=== PATIENT | female | born 1985 | race American Indian/Alaskan Native ===

== ENCOUNTER 2016-06-18 15:51 | Outpatient (CLI) | payer OTHER, MEDICAID ==
[2016-06-18] MEDS ORDERED: LACTATED RINGERS 500 ML IV ONE (17:00)
[2016-06-18] MEDS ORDERED: CELESTONE SOLUSPAN IM SCH (18:00)
== END 2016-06-18 16:45 | disposition home or self-care (01) ==
LOC: TRG 15:51
PROVIDERS: ATTEND Obstetrics & Gynecology
DX: O09.93 Supervision of high risk pregnancy, unspecified, third trimester (principal); Z3A.31 31 weeks gestation of pregnancy
CPT/HCPCS: 96372; J0702

== ENCOUNTER 2016-06-19 16:44 | Outpatient (CLI) | payer OTHER, MEDICAID ==
[2016-06-19] MEDS ORDERED: CELESTONE SOLUSPAN IM ONE (17:30)
== END 2016-06-19 17:09 | disposition home or self-care (01) ==
LOC: TRG 16:44
PROVIDERS: ATTEND Obstetrics & Gynecology
DX: O47.03 False labor before 37 completed weeks of gestation, third trimester (principal); Z3A.32 32 weeks gestation of pregnancy
CPT/HCPCS: 96372; J0702

== ENCOUNTER 2016-07-27 20:25 | Outpatient (CLI) | payer MEDICAID, OTHER ==
[2016-07-27 21:14] VITALS: BP 126/79
[2016-07-27] MEDS ORDERED: VISTARIL PO ONE (21:40)
== END 2016-07-27 21:48 | disposition home or self-care (01) ==
LOC: TRG 20:25
PROVIDERS: ATTEND Obstetrics & Gynecology
DX: O62.9 Abnormality of forces of labor, unspecified (principal); Z3A.37 37 weeks gestation of pregnancy

== ENCOUNTER 2016-08-01 06:53 | Inpatient (IN) | payer MEDICAID ==
--- NOTE | 2016-08-01 09:40 | Anesthesia Day of Surgery ---
Anesthesia Day of Surgery - Day of Surgery Patient Examined: Yes Patient H&P Reviewed: Yes Patient is NPO: Yes
--- NOTE | 2016-08-01 09:40 | Anesthesia Consultation ---
Anesthesia Consult and Med Hx Date of service: 08/01/16 - Airway Anesthetic Teeth Evaluation: Good ROM Head & Neck: Adequate Mental/Hyoid Distance: Adequate Mallampati Class: Class II Intubation Access Assessment: Probably Good - Pulmonary Exam CTA: Yes - Cardiac Exam Cardiac Exam: RRR - Pre-Operative Health Status ASA Pre-Surgery Classification: ASA2, Emergency Proposed Anesthetic Plan: Spinal - Pulmonary Hx Asthma: No COPD: No Hx Pneumonia: No - Cardiovascular System Hx Hypertension: Yes (en thyroid out of balance) Hx Angina: Yes (when thyroid acting up) - Central Nervous System Hx Seizures: No Hx Psychiatric Problems: No - Endocrine Hx Renal Disease: No Hx End Stage Renal Disease: No Hx Hypothyroidism: No Hx Hyperthyroidism: Yes - Hematic Hx Anemia: Yes Hx Sickle Cell Disease: No - Other Systems Hx Alcohol Use: No Hx Cancer: No
[2016-08-01 09:46] LABS: Basophils % (Auto) 0.4 % (0.0-1.8); Eosinophils % (Auto) 0.9 % (0.0-4.3); Hematocrit 36.1 % (30.3-42.9); Hemoglobin 11.6 gm/dl (10.1-14.3); Mean Corpuscular HGB Conc 32 % (30-34); Mean Corpuscular Volume 73 fl (79-97); Platelet Count 218 K/mm3 (140-440); Red Blood Count 4.98 M/mm3 (3.65-5.03); White Blood Count 10.9 K/mm3 (4.5-11.0)
[2016-08-01 09:56] LABS: Mean Corpuscular Hemoglobin 23 pg (28-32); Red Cell Distribution Width 22.2 % (13.2-15.2)
[2016-08-01] MEDS ORDERED: PEPCID IV ONE (10:00)
[2016-08-01] MEDS ORDERED: ANCEF/STERILE WATER 2 GM/20 ML 2 GM/20 ML SYRINGE IV NR (10:00)
[2016-08-01] MEDS ORDERED: BICITRA PO ONE (10:00)
[2016-08-01] MEDS ORDERED: LACTATED RINGERS 1,000 ML IV SCH (10:00)
[2016-08-01] MEDS ORDERED: PITOCin/NS 20 UNIT/1000ML DRIP 20 UNITS/1,000 ML BAG IV SCH ×2 (10:00→15:03)
[2016-08-01] MEDS ORDERED: REGLAN IV ONE (10:00)
--- NOTE | 2016-08-01 10:18 | History and Physical Report ---
History of Present Illness Date of examination: 08/01/16 Date of admission: 08/01/16 06:55 Chief complaint: leakage of fluid History of present illness: Pt is a 30 year old -Malaysian female JON 08/11/16 at 38w4d who presents complaining of leakage of fluid since about 6 am this morning- clear. She denies contractions or vaginal bleeding. She has had care at [facility] complicated by hyperthyroidism followed by endocrinology on methimazole 15 mg PO daily, Lupus anticoagulant with refusal of anticoagulation but taking a baby aspirin once daily, genital herpes, h/o PPROM with delivery, low-lying placenta that resolved, anemia, rubella non- immune status and IUGR followed by MFM with twice weekly visits. She is GBS positive. Past History Past Medical History: thyroid disease (hyperthyroidism ), other (Lupus Anticoagulant ) Past Surgical History: section (x2), other (eye surgery ) MACHINE [employer] History: herpes Family/Genetic History: hypertension, cancer Social history: no significant social history - Obstetrical History Expected Date of Delivery: 08/11/16 Actual Gestation: 38 Week(s) 4 Day(s) : 7 Para: 4 Hx # Term Pregnancies: 3 Number of Pregnancies: 1 Spontaneous Abortions: 1 Induced : 1 Number of Living Children: 4 Medications and Allergies Allergies Allergy/AdvReac Type Severity Reaction Status Date / Time hydrocodone bitartrate Allergy Shortness Verified 02/27/15 11:53 [From Vicodin] of Breath Home Medications Medication Instructions Recorded Confirmed Last Taken Type Propylthiouracil 100 mg PO TID #90 tab 01/23/16 08/01/16 Unknown Rx Ferrous Sulfate [Feosol] 325 mg PO BID 06/18/16 08/01/16 1 Day Ago History Methimazole 1 tab PO DAILY 06/18/16 08/01/16 1 Day Ago History Active Meds: Active Medications Cefazolin Sodium (Ancef/Sterile Water 2 Gm/20 Ml) 2 gm in 20 mls @ 80 mls/hr IV PREOP NR PRN Reason: Protocol Stop: 08/01/16 12:00 Lactated Ringer's (Lactated Ringers) 1,000 mls @ 2,250 mls/hr IV PREOP HANNAH Stop: 08/02/16 10:27 Oxytocin/Sodium Chloride (Pitocin/Ns 20 Unit/1000ml Drip) 20 units in 1,000 mls @ 0 mls/hr IV TITR HANNAH PRN Reason: As Directed Review of Systems All systems: negative - Vital Signs Vital signs: Vital Signs Pulse BP Pulse Ox 92 H 137/89 98 08/01/16 07:23 08/01/16 07:23 08/01/16 07:23 Temp Pulse Resp BP Pulse Ox 98.3 F 87 14 134/75 98 08/01/16 07:25 08/01/16 10:04 08/01/16 07:25 08/01/16 10:04 08/01/16 07:25 - Physical Exam Breasts: Positive: deferred Abdomen: Positive: soft (gravid ) Uterus: Positive: enlarged (gravid ) Extremities: Positive: normal - Obstetrical FHR: auscultation normal Uterine Contraction Monitor Mode: External Uterine Tone Measurement Phase: Resting Results Result Diagrams: 08/01/16 09:35 Abnormal lab results 08/01/16 Range/Units 09:35 MCV 73 L (79-97) fl MCH 23 L (28-32) pg RDW 22.2 H (13.2-15.2) % [place] % (Auto) 7.5 H (0.0-7.3) % Seg Neutrophils % 72.2 H (40.0-70.0) % Seg Neutrophils # 7.9 H (1.8-7.7) K/mm3 All other labs normal. Assessment and Plan A: IUP at 38w4d PROM Previous x 2 Undesired Fertility Hyperthyroidism Lupus Anticoagulant Genital Herpes GBS positive P: Proceed with repeat section with bilateral tubal ligation and other indicated procedures.
[2016-08-01] MEDS ORDERED: NARCAN 0.4 MG/1 ML IV PRN ×2 (10:39→15:03)
[2016-08-01] MEDS ORDERED: ZOFRAN IV PRN (10:39)
[2016-08-01] MEDS ORDERED: NUBAIN IV PRN (10:39)
[2016-08-01] MEDS ORDERED: MORPHINE ONE (10:48)
[2016-08-01] MEDS ORDERED: BENADRYL IV PRN (11:00)
[2016-08-01] MEDS ORDERED: SODIUM CHLORIDE FLUSH SYRINGE 10 ML IV NR (11:00)
[2016-08-01] MEDS ORDERED: WATER FOR IRRIG STERILE IR ONE (11:00)
[2016-08-01] MEDS ORDERED: NACL 0.9% IR ONE (11:00)
[2016-08-01] MEDS ORDERED: DILAUDID IV PRN (11:00)
[2016-08-01] MEDS ORDERED: NACL 0.9% 1000 ML 1,000 ML ONE (11:41)
[2016-08-01] MEDS ORDERED: XYLOCAINE MPF 2% ONE ×2 (11:46→12:08)
--- NOTE | 2016-08-01 12:23 | Ultrasound Report ---
ULTRASOUND BIOPHYSICAL PROFILE: History: well being Technique: Transabdominal ultrasound with Doppler interrogation. 0 - breathing movements 2 - movements 2 - posture and tone 2 - Qualitative amniotic fluid volume 6 - TOTAL SCORE OF POSSIBLE 8 Heart Rate (bpm) 151
--- NOTE | 2016-08-01 12:24 | Ultrasound Report ---
ULTRASOUND OB LIMITED History: well being Technique: Transabdominal ultrasound with Doppler interrogation. Gestation: Single Position: Cephalic Amniotic Fluid: Decreased GIOVANNI = 6.6 cm Heart Rate: 148 BPM
--- NOTE | 2016-08-01 12:25 | Ultrasound Report ---
ULTRASOUND OB VELOCIMETRY UMBILICAL ARTERY History: Intrauterine growth restriction Findings: Transabdominal ultrasound with spectral Doppler interrogation was performed in 3 segments of the umbilical cord. heart rate measures 148 beats per minute. Spectral waveforms are normal and persistent. The S./D. ratio average measures 2.2. The resistive index average measures 0.54.
--- NOTE | 2016-08-01 13:02 | Procedure Note ---
OB Delivery Note - Delivery Date of Delivery: 08/01/16 Surgeon: BRENDA OVERTON Estimated blood loss: other (750 mL) - Section Preop diagnosis: repeat , desires sterilization Postop diagnosis: same section procedure: section, repeat low transverse, bilateral tubal ligation Disposition: PACU Complications: none Narrative: Please see operative note. - A at 1 minute: 8 at 5 minutes: 9 Gender: Female (2270 (5lb 0 oz))
--- NOTE | 2016-08-01 13:12 | Operative Report ---
Operative Report Operative Report: Date of procedure: August 01, 2016 Preoperative diagnosis: 1) IUP at 38w4d 2) PROM 3) Previoud x 2 4) IUGR 5) Undesired Fertility 6) Hyperthyroidism 7) Lupus Anticoagulant Postoperative diagnosis: Same Procedure: 1) Repeat low transverse section 2) Bilateral tubal ligation via [place] method 3) Lysis of omental adhesions Surgeon: Mary oCrtes M.D. Anesthesia: Spinal-epidural Findings: 1) Viable male , Apgars 8 and 9, weight 2270g, (5 lb 0 oz) 2) Normal-appearing uterus ovaries and tubes 3) Dense adhesion of the omentum to the parietal peritoneum Estimated blood loss: 750 mL IV fluids: 1500 mL Urine output: 250 mL, clear at the end of the procedure Drains: Ross to gravity Specimens: Placenta to pathology Complications: None. Counts correct x 3 Disposition: Stable to PACU Indication for procedure: Pt is a 30 year old at 38w4d and a h/o previous x 2 and undesired fertility presents with PROM. The decision was made to proceed with repeat section and bilateral tubal ligation. Operation in detail: After the risks, benefits, alternatives and complications were explained to the patient she gave informed consent for the procedure. She was subsequently taken to the operating room where spinal-epidural anesthesia was noted to be adequate. She was subsequently placed in the dorsal supine position with leftward tilt and prepped and draped in a normal sterile fashion. heart tones were noted to be in the 155s prior to incision. A timeout was performed. A Pfannenstiel skin incision was made with the knife and carried down to the layer of the fascia with the Bovie. The fascia was incised in the midline and the fascial incision was extended bilaterally with the Bovie. Attention was then turned to the superior aspect of the incision which was grasped with two Kochers, tented up, and dissected off the rectus muscles. Attention was then turned to the inferior aspect of the incision which was grasped with two Kochers , tented up and dissected off the rectus muscles. The rectus muscles were then in the midline and partially transected for adequate visualization. The peritoneum was then entered sharply between two Allis clamps. Fifteen minutes were then spent lysing adhesions of the omentum to the parietal peritoneum. The peritoneal incision was then extended with good visualization of the bladder. The peritoneal incision was then stretched. An Brooks self- retaining retractor was placed for visualization. The bladder blade was placed. The vesicouterine peritoneum was grasped with smooth pickups and incised with Metzenbaum scissors. Metzenbaum scissors were used to extend the incision bilaterally. The bladder flap was then created digitally and the bladder blade was replaced. A transverse incision was made in the lower uterine segment with a knife and extended bilaterally with the bandage scissors. The head was delivered without difficulty followed by shoulders and body. was bulb suctioned at delivery. The cord was clamped and cut and the was handed to NICU staff in attendance. Cord blood was collected. The placenta was then delivered manually. The uterus was then exteriorized and cleared of all clots and debris. The hysterotomy was then reapproximated with 0 Vicryl in a running locked fashion. A second layer of the same suture was used in imbricating fashion. Attention was then turned to the tubal ligation. The right tube was identified and followed to to the fimbriae. The tube was then grasped with a Andrei and ligated via the [place] method with 0 plain gut suture. Attention was then turned to the left tube which in a similar fashion was followed down to the fimbriae, grasped with a Cactus, and ligated in via the [place] method with 0 plain gut suture. Hemostasis was noted. The hysterotomy was inspected and hemostasis was noted. The uterus was then returned to the peritoneal cavity. All instruments were removed from the abdominal cavity. The gutters were irrigated and cleared of all clots and debris. The hysterotomy was again inspected and noted to be hemostatic. Surgicel was then placed over the hysterotomy. The rectus muscles were then reapproximated with 2-0 Vicryl in an interrupted fashion. The cut edges of the rectus muscles were then covered with Surgicel. The fascia was reapproximated with 0 Vicryl in a running fashion. The subcutaneous tissue was reapproximated wtih 3-0 Vicryl in a running fashion. The skin was reapproximated with 4-0 Vicryl in a subcuticular fashion. The incision was then covered with steri strips and a pressure dressing. The procedure was then ended. The patient tolerated the procedure well and was taken to the PACU in stable condition. All instrument, lap, and needle counts were correct 3.
[2016-08-01] MEDS ORDERED: LANSINOH TP PRN (15:03)
[2016-08-01] MEDS ORDERED: SODIUM CHLORIDE FLUSH SYRINGE 10 ML IV SCH (15:03)
[2016-08-01] MEDS ORDERED: TUCKS PAD TP PRN (15:03)
[2016-08-01] MEDS ORDERED: PERCOCET 5/325 PO PRN (15:03)
[2016-08-01] MEDS ORDERED: MORPHINE IV PRN ×2 (15:03)
[2016-08-01] MEDS ORDERED: TAPAZOLE PO SCH (16:30)
[2016-08-01] MEDS: ANCEF/NS 1 GM/50 ML 1 GM/50 ML BAG IV SCH (18:03)
[2016-08-01] MEDS: D5LR 1,000 ML IV SCH (18:03)
[2016-08-01] MEDS: TORADOL IV PRN (18:04)
[2016-08-01] MEDS: TAPAZOLE PO SCH (22:09)
[2016-08-02] MEDS: TORADOL IV PRN (00:24)
[2016-08-02] MEDS: D5LR 1,000 ML IV SCH (00:25)
[2016-08-02] MEDS: ANCEF/NS 1 GM/50 ML 1 GM/50 ML BAG IV SCH (02:50)
[2016-08-02 05:51] LABS: Hematocrit 26.4 % (30.3-42.9); Hemoglobin 8.2 gm/dl (10.1-14.3)
[2016-08-02] MEDS ORDERED: BOOSTRIX IM ONE (06:00)
--- NOTE | 2016-08-02 09:06 | Progress Note ---
Assessment and Plan A/P POD#1 s/p repeat c/s and tubal doing well breast feeding without difficult tolerating diet ambulating well no complaints bleeding decreased dressing intact -remove today continue PP care Subjective - Subjective Date of service: 08/02/16 Principal diagnosis: s/p repeat c/s Patient reports: appetite normal, voiding normally, pain well controlled, flatus , ambulating normally Ladd: doing well, nursing well Objective - Vital Signs Latest vital signs: Vital Signs Temp Pulse Pulse Pulse Resp BP BP 08/02/16 05:00 98.4 F 81 18 109/67 08/02/16 01:07 98 F 70 20 105/67 08/02/16 00:24 18 08/01/16 20:23 98.2 F 76 20 108/66 08/01/16 18:04 20 08/01/16 15:40 98.0 F 84 20 112/64 08/01/16 15:00 98.1 F 68 20 110/69 08/01/16 14:05 70 20 97/58 08/01/16 13:50 65 16 97/57 08/01/16 13:35 79 13 97/59 08/01/16 13:20 76 22 96/60 08/01/16 13:05 75 17 104/62 08/01/16 13:00 73 16 94/59 08/01/16 12:55 75 14 101/58 08/01/16 12:52 97.7 F 80 14 97/58 08/01/16 10:19 81 131/77 08/01/16 10:04 87 134/75 08/01/16 09:49 86 130/76 08/01/16 09:34 89 120/82 08/01/16 09:19 108 H 131/84 Pulse Ox 08/02/16 05:00 08/02/16 01:07 08/02/16 00:24 08/01/16 20:23 08/01/16 18:04 08/01/16 15:40 08/01/16 15:00 08/01/16 14:05 100 08/01/16 13:50 100 08/01/16 13:35 100 08/01/16 13:20 99 08/01/16 13:05 99 08/01/16 13:00 99 08/01/16 12:55 99 08/01/16 12:52 08/01/16 10:19 08/01/16 10:04 08/01/16 09:49 08/01/16 09:34 08/01/16 09:19 Intake and Output 08/01/16 08/02/16 08/02/16 22:59 06:59 14:59 Intake Total 1370 1360 Output Total 400 2200 450 Balance 970 -840 -450 Intake: IV 1050 1000 ANCEF/NS 1 GM/50 ML 1 gm 50 In 50 ml @ 100 mls/hr IV Q8H HANNAH Rx#:[id number] ANCEF/STERILE WATER 2 GM/ 50 20 ML 2 gm In 20 ml @ 80 mls/hr IV PREOP NR Rx#: [id number] 1,000 ml @ 125 mls/ 950 1000 hr IV DIRECT HANNAH Rx#: [id number] Oral 320 Intake, Free Water 360 Output: Urine 400 2200 450 Indwelling Catheter 400 1800 Void 400 450 Other: Total, Intake Amount 320 Total, Output Amount 400 400 450 Voiding Method Toilet Estimated Blood Loss 700 - Exam Breasts: Present: normal Cardiovascular: Present: Regular rate, Normal S1, Normal S2 Lungs: Present: Clear to auscultation, Normal air movement Abdomen: Present: normal appearance, soft. Absent: distention, tenderness, guarding Vulva: both: normal Uterus: Present: normal, firm, fundal height below umbilicus. Absent: bogginess , tenderness Extremities: Present: normal Deep Tendon Reflex Grade: Normal +2 Incision: Present: normal - Labs Labs: Abnormal lab results 08/01/16 08/02/16 Range/Units 09:35 05:17 Hgb 8.2 L D (10.1-14.3) gm/dl Hct 26.4 L D (30.3-42.9) % MCV 73 L (79-97) fl MCH 23 L (28-32) pg RDW 22.2 H (13.2-15.2) % [place] % (Auto) 7.5 H (0.0-7.3) % Seg Neutrophils % 72.2 H (40.0-70.0) % Seg Neutrophils # 7.9 H (1.8-7.7) K/mm3
[2016-08-02] MEDS: FEOSOL PO SCH ×2 (10:07→22:02)
[2016-08-02] MEDS: PRENATAL VITAMIN PO SCH (10:08)
--- NOTE | 2016-08-02 12:24 | Progress Note ---
Subjective Date of service: 08/02/16 Principal diagnosis: s/p repeat c/s Interval history: 1st POD after repeat , BTL Patient is in the bed, comfortable. Pain is well controlled with pain meds. Ambulated well. No residual neurological deficit. No anesthesia complications Objective - Constitutional Vitals: Vital Signs - 12hr 08/02/16 08/02/16 08/02/16 00:24 01:07 05:00 Temperature 98 F 98.4 F Pulse Rate [ 70 81 Left From Monitor] Pulse Rate [ Right Radial] Respiratory 18 20 18 Rate Blood Pressure 105/67 109/67 [Right Arm] 08/02/16 08:20 Temperature 98.3 F Pulse Rate [ Left From Monitor] Pulse Rate [ 83 Right Radial] Respiratory 20 Rate Blood Pressure 110/65 [Right Arm] - Labs CBC & Chem 7: 08/02/16 05:17 Labs: Abnormal lab results 08/02/16 Range/Units 05:17 Hgb 8.2 L D (10.1-14.3) gm/dl Hct 26.4 L D (30.3-42.9) %
[2016-08-02] MEDS ORDERED: M-M-R II VACCINE SUB-Q ONE (13:25)
[2016-08-02] MEDS: MOTRIN PO PRN ×2 (14:08→22:03)
[2016-08-02] MEDS: MYLICON PO PRN (14:12)
[2016-08-02] MEDS: TAPAZOLE PO SCH (22:03)
[2016-08-03] MEDS: MILK OF MAGNESIA PO SCH ×2 (06:09)
--- NOTE | 2016-08-03 08:33 | Progress Note ---
Assessment and Plan - Patient Problems (1) Previous delivery affecting Current Visit: Yes Status: Acute Plan to address problem: Patient doing well discharged home (2) Active labor at term Current Visit: Yes Status: Acute Subjective - Subjective Date of service: 08/03/16 Principal diagnosis: s/p repeat c/s Interval history: The patient is without complaints. She is currently tolerating a regular diet. She is voiding spontaneously. Patient reports: appetite normal, voiding normally, pain well controlled [place]: doing well Objective - Vital Signs Latest vital signs: Vital Signs Temp Pulse Resp BP 08/03/16 00:00 98.2 F 98 H 20 98/73 08/02/16 22:03 18 08/02/16 17:08 98.7 F 74 18 117/54 Intake and Output 08/02/16 08/03/16 08/03/16 22:59 06:59 14:59 Intake Total 600 240 Balance 600 240 Intake: Oral 600 240 Other: Total, Intake Amount 240 240 # Voids Void 1 1 - Exam Abdomen: Present: normal appearance, soft Uterus: Present: normal, firm Incision: Present: normal
--- NOTE | 2016-08-03 08:34 | Discharge Summary ---
Providers - Providers Date of Admission: 08/01/16 06:55 Date of discharge: 08/03/16 Attending physician: BRENDA OVERTON 08/01/16 15:03 Consult to Radio News Writer [CONS] Routine Reason For Exam: Primary care physician: BRENDA OVERTON Hospitalization Reason for admission: active labor Delivery: Procedure: section, bilateral tubal ligation, repeat low transverse Incision: normal Discharge diagnosis: IUP at term delivered Hospital course: The patient was admitted in active labor with ruptured membranes. She has a history of prior delivery. Please see operative note for details of surgery. Her postoperative course was uneventful. Condition at discharge: Good Disposition: DISCHARGED TO HOME OR SELFCARE - Discharge Diagnoses (1) Previous delivery affecting Status: Acute (2) Active labor at term Status: Acute Plan - Discharge Medications Prescriptions: Ferrous Sulfate [Feosol 325 MG tab] 325 mg PO BID #60 tablet Ibuprofen [Motrin 800 MG tab] 800 mg PO Q8HR PRN #30 tablet PRN Reason: Pain oxyCODONE /ACETAMINOPHEN [Percocet 5/325] 1 tab PO Q6HR PRN #40 tablet PRN Reason: Pain Vit-Fe Fumar-FA [ Vitamin] 1 tab PO QDAY #30 tablet - Provider Discharge Summary Activity: no sex for 6 weeks, no heavy lifting 4 weeks, no strenuous exercise Diet: routine Instructions: routine Additional instructions: [] Smoking cessation referral if applicable(refer to patient education folder for contact #) [] Refer to [facility]'s [facility] Booklet Call your doctor immediately for: * Fever > 100.5 * Heavy vaginal bleeding ( >1 pad per hour) * Severe persistent headache * Shortness of breath * Reddened, hot, painful area to leg or breast * Drainage or odor from incision. * Keep incision clean and dry at all times and follow doctor's instructions regarding bathing/showering; follow-up in 2 weeks for an incision check - Follow up plan
[2016-08-03] MEDS: PRENATAL VITAMIN PO SCH (08:36)
[2016-08-03] MEDS: MYLICON PO PRN (08:36)
[2016-08-03] MEDS: FEOSOL PO SCH (08:36)
[2016-08-03] MEDS: MOTRIN PO PRN (08:39)
[2016-08-03 15:42] VITALS: BP 112/78
== END 2016-08-03 14:11 | disposition home or self-care (01) | DRG 765 ==
LOC: TRG 06:53 → APU 06:55 → OB 14:37
PROVIDERS: ADMIT Obstetrics & Gynecology; ATTEND Obstetrics & Gynecology
PROC: 10D00Z1 Extraction of Products of Conception, Low, Open Approach (ICD-10-PCS; principal; 2016-08-01)
PROC: 0DNW0ZZ Release Peritoneum, Open Approach (ICD-10-PCS; 2016-08-01)
PROC: 0UL70ZZ Occlusion of Bilateral Fallopian Tubes, Open Approach (ICD-10-PCS; 2016-08-01)
DX: O42.02 Full-term premature rupture of membranes, onset of labor within 24 hours of rupture (principal); O99.12 Other diseases of the blood and blood-forming organs and certain disorders involving the immune mechanism complicating childbirth; D68.62 Lupus anticoagulant syndrome; O98.32 Other infections with a predominantly sexual mode of transmission complicating childbirth; A60.00 Herpesviral infection of urogenital system, unspecified; O34.211 Maternal care for low transverse scar from previous cesarean delivery; Z3A.38 38 weeks gestation of pregnancy; Z37.0 Single live birth; N85.8 Other specified noninflammatory disorders of uterus; O99.824 Streptococcus B carrier state complicating childbirth; Z30.2 Encounter for sterilization; O99.284 Endocrine, nutritional and metabolic diseases complicating childbirth; E05.90 Thyrotoxicosis, unspecified without thyrotoxic crisis or storm; O36.5930 Maternal care for other known or suspected poor fetal growth, third trimester, not applicable or unspecified; O44.40 Low lying placenta NOS or without hemorrhage, unspecified trimester; O99.019 Anemia complicating pregnancy, unspecified trimester; D64.9 Anemia, unspecified; O99.62 Diseases of the digestive system complicating childbirth; K66.0 Peritoneal adhesions (postprocedural) (postinfection)
CPT/HCPCS: 36415; 76815; 76819; 76820; 85014; 85018; 85025; 86850; 86900; 86901; 88302; 88304; 88305; 99211; A6250; G0463; J0690; J1885; J2270; J2590; J2765; J7030; J7120; J7121